=== PATIENT | female | born 1935 | race Hispanic/Latino ===

== ENCOUNTER 2020-12-22 12:18 | Emergency (ER) | payer MEDICARE ==
[2020-12-22 12:28] VITALS: BP 173/90
[2020-12-22 13:23] VITALS: BP 166/84
[2020-12-22 14:43] LABS: BASOPHILS % (AUTO) 0.5 % (0.0-5.0); EOSINOPHILS % (AUTO) 1.3 % (0.0-8.0); HEMATOCRIT 43.6 % (36-48); LYMPHOCYTES % (AUTO) 27.5 % (21.0-51.0); MEAN CORPUSCULAR HEMOGLOBIN 29.6 pg (27.0-33.0); MEAN CORPUSCULAR VOLUME 89.7 fL (79-99); MONOCYTES % (AUTO) 7.2 % (3.0-13.0); NEUTROPHILS % (AUTO) 63.2 % (40.0-77.0); PLATELET COUNT (AUTO) 238 K/uL (130-400); RED BLOOD CELL COUNT(AUTO) 4.86 MIL/uL (4.00-5.50); RED CELL DISTRIBUTION WIDTH 13.6 % (11.0-15.5); WHITE BLOOD COUNT (AUTO) 7.9 K/uL (4.8-10.8)
[2020-12-22 14:54] LABS: CREATININE 0.7 mg/dL (0.5-1.5); POTASSIUM 3.9 mmol/L (3.5-5.1)
[2020-12-22 14:57] LABS: ALBUMIN 3.8 g/dL (3.5-5.0); BILIRUBIN,TOTAL 1.4 mg/dL (0.2-1.0); TOTAL PROTEIN, SERUM 8.1 g/dL (6.0-8.3)
[2020-12-22 15:22] LABS: APPEARANCE,URINE Cloudy (CLEAR); BILIRUBIN,URINE Negative (NEGATIVE); COLOR,URINE Yellow (YELLOW); GLUCOSE, URINE (UA) Negative (NEGATIVE); KETONES,URINE Negative (NEGATIVE); LEUKOCYTE ESTERASE ,URINE Trace (NEGATIVE); NITRATE,URINE Negative (NEGATIVE); OCCULT BLOOD,URINE Negative (NEGATIVE); PH,URINE 8.5 (5.0-8.0); PROTEIN,URINE POS 1+ mg/dL (NEGATIVE)
[2020-12-22 15:39] VITALS: BP 147/88
[2020-12-22 16:07] LABS: AMORPHOUS SEDIMENT,UR Few /LPF (None Seen); BACTERIA,URINE Few /HPF (None Seen); MUCUS,URINE Few LPF (None Seen); SQUAMOUS EPITHELIAL CELL,UR 0-2 /HPF (0-2)
== END 2020-12-22 16:02 | disposition home or self-care (01) ==
LOC: EDH 12:18
DX: R41.0 Disorientation, unspecified (principal); R51.9 Headache, unspecified; R11.0 Nausea; W18.39XA Other fall on same level, initial encounter; Y93.89 Activity, other specified; Y92.89 Other specified places as the place of occurrence of the external cause; Y99.8 Other external cause status
CPT/HCPCS: 36415; 70450; 80053; 81001; 84484; 85025; 93005

== ENCOUNTER 2022-07-01 14:53 | Inpatient (IN) | payer OTHER, MEDICARE ==
[~2022-07-01] VITALS: Ht 157.5 cm; Wt 73.8 kg
[2022-07-01 15:44] LABS: BASOPHILS % (AUTO) 0.7 % (0.0-5.0); EOSINOPHILS % (AUTO) 1.3 % (0.0-8.0); HEMATOCRIT 41.7 % (36-48); LYMPHOCYTES % (AUTO) 15.1 % (21.0-51.0); MEAN CORPUSCULAR HEMOGLOBIN 29.6 pg (27.0-33.0); MEAN CORPUSCULAR HGB CONC 35.3 g/dL (32.0-36.0); MEAN CORPUSCULAR VOLUME 84.1 fL (79-99); MONOCYTES % (AUTO) 6.7 % (3.0-13.0); PLATELET COUNT (AUTO) 187 K/uL (130-400); RED BLOOD CELL COUNT(AUTO) 4.96 MIL/uL (4.00-5.50); WHITE BLOOD COUNT (AUTO) 6.1 K/uL (4.8-10.8)
[2022-07-01 15:52] LABS: CREATININE 1.4 mg/dL (0.5-1.5)
[2022-07-01 15:54] LABS: INR 1.16 (0.85-1.15); PROTHROMBIN TIME 12.5 SEC (9.6-11.6)
[2022-07-01 15:56] LABS: PARTIAL THROMBOPLASTIN TIME 39.3 SEC (26.3-35.5)
[2022-07-01 15:57] LABS: ALBUMIN 3.4 g/dL (3.5-5.0); TOTAL PROTEIN, SERUM 7.3 g/dL (6.0-8.3)
[2022-07-01 16:13] LABS: MAGNESIUM 2.4 mg/dL (1.80-2.40)
[2022-07-01] MEDS ORDERED: POTASSIUM BICARB/CIT AC 25 MEQ TABLET.EFF ONE (16:22)
[2022-07-01] MEDS ORDERED: POTASSIUM BICARB/CIT AC 25 MEQ TABLET.EFF PO ONE (16:30)
[2022-07-01 17:24] LABS: APPEARANCE,URINE CLOUDY (CLEAR); BILIRUBIN,URINE NEGATIVE (NEGATIVE); COLOR,URINE YELLOW (YELLOW); GLUCOSE, URINE (UA) NEGATIVE (NEGATIVE); KETONES,URINE NEGATIVE (NEGATIVE); LEUKOCYTE ESTERASE ,URINE NEGATIVE Leu/uL (NEGATIVE); NITRATE,URINE NEGATIVE (NEGATIVE); OCCULT BLOOD,URINE LARGE (NEGATIVE); PH,URINE 6.5 (5.0-8.0); PROTEIN,URINE 300 mg/dL (NEGATIVE)
[2022-07-01] MEDS ORDERED: ROSU20TA31 PO (17:24)
[2022-07-01] MEDS ORDERED: DULO20CA18 PO (17:24)
[2022-07-01] MEDS ORDERED: APIX5TAB PO (17:24)
[2022-07-01] MEDS ORDERED: PANT40GR PO (17:24)
[2022-07-01] MEDS ORDERED: METO-408 PO (17:24)
[2022-07-01] MEDS ORDERED: IRBE1TAB43 PO (17:24)
[2022-07-01] MEDS ORDERED: LEVO25CA4 PO (17:24)
[2022-07-01 17:29] LABS: BACTERIA,URINE RARE /HPF (None Seen); MUCUS,URINE RARE LPF (None Seen); RBC,URINE 26-50 /HPF (0-1); SQUAMOUS EPITHELIAL CELL,UR RARE /HPF (0-2)
[2022-07-01] MEDS ORDERED: ONDANSETRON 4MG INJ IV PRN (20:30)
[2022-07-01] MEDS ORDERED: MAGNESIUM 2GM PREMIX 50ML 50 ML IV PRN (20:30)
[2022-07-01] MEDS ORDERED: 0.9%NACL 1000ML 1,000 ML IV SCH (20:30)
[2022-07-01] MEDS ORDERED: ACETAMINOPHEN 325 MG TAB PO PRN ×2 (20:30)
[2022-07-01] MEDS ORDERED: LIDOCAINE HCL-MPF 1% 2ML VIAL IV PRN (20:30)
[2022-07-01] MEDS ORDERED: MORPHINE 2 MG SYG IV PRN (20:30)
[2022-07-01] MEDS ORDERED: HYDROCODONE/ACETAMINOPHEN 5/325 MG TAB PO PRN (20:30)
[2022-07-01] MEDS ORDERED: POTASSIUM CHLORIDE 20MEQ/100ML 100 ML IV PRN (20:30)
[2022-07-01 22:50] VITALS: BP 171/76
[2022-07-01] MEDS: LACTATED RINGERS 1000ML 1,000 ML IV SCH (23:44)
[2022-07-02 04:00] VITALS: BP 143/73
[2022-07-02] MEDS: LEVOTHYROXINE 25 MCG TABLET PO SCH (05:44)
[2022-07-02 05:47] LABS: BASOPHILS % (AUTO) 0.8 % (0.0-5.0); EOSINOPHILS % (AUTO) 3.6 % (0.0-8.0); HEMATOCRIT 39.5 % (36-48); LYMPHOCYTES % (AUTO) 22.5 % (21.0-51.0); MEAN CORPUSCULAR HEMOGLOBIN 29.8 pg (27.0-33.0); MEAN CORPUSCULAR HGB CONC 35.2 g/dL (32.0-36.0); MEAN CORPUSCULAR VOLUME 84.6 fL (79-99); MONOCYTES % (AUTO) 8.7 % (3.0-13.0); NEUTROPHILS % (AUTO) 64.2 % (40.0-77.0); PLATELET COUNT (AUTO) 162 K/uL (130-400); RED BLOOD CELL COUNT(AUTO) 4.67 MIL/uL (4.00-5.50); RED CELL DISTRIBUTION WIDTH 12.8 % (11.0-15.5); WHITE BLOOD COUNT (AUTO) 4.7 K/uL (4.8-10.8)
[2022-07-02 06:09] LABS: CREATININE 1.4 mg/dL (0.5-1.5); MAGNESIUM 2.4 mg/dL (1.80-2.40); PHOSPHORUS 3.2 mg/dL (2.5-4.9); THYROID STIMULATING HORMONE 3.2 uIU/mL (0.36-3.74)
[2022-07-02 06:13] LABS: POTASSIUM 2.9 mmol/L (3.5-5.1)
[2022-07-02] MEDS: KCL 20 MEQ ERTAB PO PRN (06:17)
[2022-07-02 07:20] VITALS: BP 141/74
[2022-07-02] MEDS: APIXABAN 5 MG TABLET PO SCH ×2 (08:16→19:43)
[2022-07-02] MEDS: METOPROLOL SUCCINATE 25 MG TAB.SR.24H PO SCH (08:16)
[2022-07-02] MEDS: FAMOTIDINE 20MG TAB PO SCH (08:16)
[2022-07-02] MEDS: LOSARTAN 100 MG TABLET PO SCH (08:16)
[2022-07-02] MEDS: **HM**DULOXETINE 20MG PO SCH (08:23)
[2022-07-02] MEDS ORDERED: ENOXAPARIN SODIUM 40 MG/0.4 ML SYRINGE SQ SCH (09:00)
[2022-07-02] MEDS ORDERED: HYDROCHLOROTHIAZIDE 25 MG TABLET PO SCH (09:00)
[2022-07-02] MEDS: POTASSIUM CHLORIDE 10% ELIXIR 20 MEQ/15 ML UDCUP PO PRN ×3 (09:51→15:21)
[2022-07-02 11:25] VITALS: BP 136/66
[2022-07-02] MEDS: LACTATED RINGERS 1000ML 1,000 ML IV SCH (13:23)
[2022-07-02 15:25] VITALS: BP 179/88
[2022-07-02] MEDS ORDERED: AMLODIPINE 5 MG TAB PO SCH (15:30)
[2022-07-02 18:50] LABS: CREATININE 1.4 mg/dL (0.5-1.5); MAGNESIUM 2.1 mg/dL (1.80-2.40); POTASSIUM 3.8 mmol/L (3.5-5.1)
[2022-07-02] MEDS: ATORVASTATIN 40 MG TABLET PO SCH (19:43)
[2022-07-02 20:00] VITALS: BP 169/81
[2022-07-03] VITALS: BP 155/73
[2022-07-03 04:00] VITALS: BP_SYST 111; BP_SYST 152; BP_DIAS 64; BP_DIAS 77
[2022-07-03 05:12] LABS: BASOPHILS % (AUTO) 0.6 % (0.0-5.0); EOSINOPHILS % (AUTO) 1.5 % (0.0-8.0); HEMATOCRIT 39.4 % (36-48); LYMPHOCYTES % (AUTO) 23.5 % (21.0-51.0); MEAN CORPUSCULAR HGB CONC 35.3 g/dL (32.0-36.0); MEAN CORPUSCULAR VOLUME 85.1 fL (79-99); MONOCYTES % (AUTO) 9.7 % (3.0-13.0); NEUTROPHILS % (AUTO) 64.4 % (40.0-77.0); PLATELET COUNT (AUTO) 171 K/uL (130-400); RED BLOOD CELL COUNT(AUTO) 4.63 MIL/uL (4.00-5.50); RED CELL DISTRIBUTION WIDTH 12.7 % (11.0-15.5); WHITE BLOOD COUNT (AUTO) 6.5 K/uL (4.8-10.8)
[2022-07-03 05:34] LABS: CREATININE 1.3 mg/dL (0.5-1.5); PHOSPHORUS 2.6 mg/dL (2.5-4.9); POTASSIUM 3.7 mmol/L (3.5-5.1)
[2022-07-03] MEDS: LEVOTHYROXINE 25 MCG TABLET PO SCH (06:28)
[2022-07-03 08:00] VITALS: BP 105/63
[2022-07-03] MEDS: **HM**DULOXETINE 20MG PO SCH (09:00)
[2022-07-03] MEDS: AMLODIPINE 5 MG TAB PO SCH (09:23)
[2022-07-03] MEDS: LEVOFLOXACIN 500 MG TABLET PO SCH (09:23)
[2022-07-03] MEDS: METOPROLOL SUCCINATE 25 MG TAB.SR.24H PO SCH (09:24)
[2022-07-03] MEDS: APIXABAN 5 MG TABLET PO SCH ×2 (09:24→21:13)
[2022-07-03] MEDS: LOSARTAN 100 MG TABLET PO SCH (09:24)
[2022-07-03] MEDS: FAMOTIDINE 20MG TAB PO SCH (09:24)
[2022-07-03 12:00] VITALS: BP 105/52
[2022-07-03] MEDS ORDERED: 0.9%NACL 1000ML 500 ML IV SCH (14:30)
[2022-07-03] MEDS ORDERED: AMLO5TAB4 PO (14:34)
[2022-07-03] MEDS ORDERED: LOSA100T2 PO (14:34)
[2022-07-03] MEDS ORDERED: LEVO-70 PO (14:34)
[2022-07-03 16:00] VITALS: BP 122/69
[2022-07-03 20:14] VITALS: BP 121/72
[2022-07-03] MEDS: ATORVASTATIN 40 MG TABLET PO SCH (21:13)
[2022-07-04 00:50] VITALS: BP 123/72
[2022-07-04 05:09] VITALS: BP 103/68
[2022-07-04 05:21] LABS: HEMATOCRIT 38.5 % (36-48); LYMPHOCYTES % (AUTO) 34.2 % (21.0-51.0); MEAN CORPUSCULAR HEMOGLOBIN 29.8 pg (27.0-33.0); MEAN CORPUSCULAR HGB CONC 34.3 g/dL (32.0-36.0); MEAN CORPUSCULAR VOLUME 86.9 fL (79-99); MONOCYTES % (AUTO) 10.4 % (3.0-13.0); NEUTROPHILS % (AUTO) 49.2 % (40.0-77.0); PLATELET COUNT (AUTO) 170 K/uL (130-400); RED BLOOD CELL COUNT(AUTO) 4.43 MIL/uL (4.00-5.50); RED CELL DISTRIBUTION WIDTH 12.7 % (11.0-15.5); WHITE BLOOD COUNT (AUTO) 5.2 K/uL (4.8-10.8)
[2022-07-04 05:32] LABS: CREATININE 1.2 mg/dL (0.5-1.5); PHOSPHORUS 2.6 mg/dL (2.5-4.9); POTASSIUM 3.2 mmol/L (3.5-5.1)
[2022-07-04 06:25] LABS: B-TYPE NATRIURETIC PEPTIDE 237 pg/mL (0-100)
[2022-07-04] MEDS: LEVOTHYROXINE 25 MCG TABLET PO SCH (07:02)
[2022-07-04 08:00] VITALS: BP 123/72
[2022-07-04] MEDS: **HM**DULOXETINE 20MG PO SCH (09:00)
[2022-07-04] MEDS ORDERED: LOSARTAN 50 MG TABLET PO SCH (09:00)
[2022-07-04] MEDS: AMLODIPINE 5 MG TAB PO SCH (10:04)
[2022-07-04] MEDS: KCL 20 MEQ ERTAB PO PRN ×3 (10:04→16:08)
[2022-07-04] MEDS: LEVOFLOXACIN 500 MG TABLET PO SCH (10:05)
[2022-07-04] MEDS: APIXABAN 5 MG TABLET PO SCH (10:05)
[2022-07-04] MEDS: FAMOTIDINE 20MG TAB PO SCH (10:05)
[2022-07-04] MEDS: METOPROLOL SUCCINATE 25 MG TAB.SR.24H PO SCH (10:05)
[2022-07-04 11:41] VITALS: BP 146/71
[2022-07-04 16:00] VITALS: BP 129/55
[2022-07-04] MEDS ORDERED: LOSA50TA64 PO (19:06)
== END 2022-07-04 20:29 | disposition home or self-care (01) | DRG 871 ==
LOC: EDH 14:53 → EDHIP 18:15 → 3AH 20:54
PROVIDERS: ADMIT Internal Medicine; ATTEND Internal Medicine
DX: A41.9 Sepsis, unspecified organism (principal); G93.41 Metabolic encephalopathy; N39.0 Urinary tract infection, site not specified; E87.1 Hypo-osmolality and hyponatremia; E87.6 Hypokalemia; E03.9 Hypothyroidism, unspecified; E66.9 Obesity, unspecified; F03.90 Unspecified dementia, unspecified severity, without behavioral disturbance, psychotic disturbance, mood disturbance, and anxiety; H54.8 Legal blindness, as defined in USA; I10 Essential (primary) hypertension; I48.91 Unspecified atrial fibrillation; F32.A Depression, unspecified; M19.90 Unspecified osteoarthritis, unspecified site; E86.0 Dehydration; E78.5 Hyperlipidemia, unspecified; Z79.01 Long term (current) use of anticoagulants; Z85.3 Personal history of malignant neoplasm of breast; Z79.899 Other long term (current) drug therapy; Z68.29 Body mass index [BMI] 29.0-29.9, adult
CPT/HCPCS: 36415; 70450; 71045; 80048; 80053; 81001; 83605; 83735; 83880; 83930; 84100; 84145; 84443; 85025; 85610; 85730; 87088; 92610; 93005; 97039; G0378; J7120